=== PATIENT | male | born 1950 | race Caucasian/White ===

== ENCOUNTER 2016-12-24 09:07 | Day surgery (SDC) | payer OTHER ==
[~2016-12-24] VITALS: Ht 167.6 cm; Wt 84.5 kg
[2016-12-24] MEDS ORDERED: CHOLESTEROL MED (11:03)
[2016-12-24] MEDS ORDERED: TRAMADOL (11:03)
[2016-12-24] MEDS ORDERED: HTN MED (11:03)
[2016-12-24] MEDS ORDERED: ASPIRIN (11:03)
[2016-12-24] MEDS ORDERED: PROSTATE MED (11:03)
[2016-12-24 11:23] VITALS: Ht 167.6 cm; Wt 84.5 kg
[2016-12-24 11:54] VITALS: BP 124/67; PULSE 58; RESP 18
[2016-12-24] MEDS ORDERED: FENTAnyl 50 MCG/ML VIAL ONE (12:24)
[2016-12-24] MEDS ORDERED: MIDAZOLAM 1 MG/ML 2 ML INJ ONE ×2 (12:24)
[2016-12-24 12:53] VITALS: BP 111/68; PULSE 58; RESP 24
--- NOTE | 2016-12-24 13:01 | GILP ---
DATE OF PROCEDURE: 12/24/2016 NAME OF PROCEDURES: Colonoscopy, biopsy and polypectomy. SURGEON: Abdulkadir Higginbotham MD PREOPERATIVE DIAGNOSIS: Screening colonoscopy. POSTOPERATIVE DIAGNOSES: 1. Colonoscopy all the way to the cecum. 2. Sigmoid colon polyp was removed using the snare and electrocautery. 3. Three other small polyps were removed using the biopsy forceps. 4. Internal hemorrhoids. INDICATION FOR THE PROCEDURE: Mr. Gordon Green is a 66-year-old male patient who was scheduled for screening colonoscopy. The procedure and possible complications are well explained to the patient, he understood and consen woodrow to the procedure. DESCRIPTION OF PROCEDURE: Under the influence of fentanyl and Versed, the colonoscope was carefully introduced in the rectum and under direct vision, it was advanced all the way to the cecum. FINDINGS: The patient had a sigmoid colon polyp and it was removed using the snare and electrocaute ry. He also had 3 more small polyps and they were removed using the biopsy forceps. He had interna l hemorrhoids. He tolerated the procedure very well and there was no complication from the procedure. At the end o f the procedure, he was awake with stable vital signs and he was discharged home to the care of his family. IMPRESSION: 1. Colonoscopy all the way to the cecum. 2. Sigmoid colon polyp was removed using the snare and electrocautery. 3. Three small polyps were removed using the biopsy forceps. 4. Internal hemorrhoids. PLAN: 1. Anusol-HC 2.5% cream b.i.d. 2. Await histopathology reports. 3. Next screening colonoscopy in 5 years. Dictated By: ABDULKADIR PICKERING/TUYET Conf#: [id number] DID#: [id number] CC: ABDULKADIR HIGGINBOTHAM MD;*EndCC*
== END 2016-12-24 13:19 | disposition home or self-care (01) ==
LOC: GIL 09:07
PROVIDERS: ATTEND Internal Medicine Gastroenterology
DX: Z12.11 Encounter for screening for malignant neoplasm of colon (principal); K62.1 Rectal polyp; D17.5 Benign lipomatous neoplasm of intra-abdominal organs; K64.4 Residual hemorrhoidal skin tags; I10 Essential (primary) hypertension
CPT/HCPCS: 45380; 88305; J2250; J3010; Z7610